=== PATIENT | male | born 1990 | race Caucasian/White ===

== ENCOUNTER 2020-07-17 14:27 | Emergency (ER) | payer MEDICAID ==
[~2020-07-17] VITALS: Ht 182.9 cm; Wt 86.4 kg
[2020-07-17] MEDS ORDERED: BUPR1FIL3 PO (15:43)
--- NOTE | 2020-07-17 16:02 | NUR ---
PT STATES HE IS HAVING A PANIC ATTACK AND FEELING SUICIDAL. PT'S PLAN WOULD BE TO SHOOT HIMSELF WITH A GUN. DOESNT OWN A GUN BUT KNOWS WHERE TO GET ONE. PT DOES NOT WANT TO HURT OTHERS. PT LIEVES WITH HIS STEPFATHER WHO IS SUPPORTIVE. PT GOES TO [facility] FOR HIS SUBOXONE TREATMENTS. PT WALKED HERE TODAY.
[2020-07-17 16:30] LABS: BASOPHILS # (AUTO) 0.1 X10'3 (0-0.2); BASOPHILS % (AUTO) 1.5 % (0-1); EOSINOPHILS # (AUTO) 0.1 X10'3 (0-0.9); EOSINOPHILS % (AUTO) 0.9 % (0-6); HEMATOCRIT 42.7 % (42.0-52.0); HEMOGLOBIN 14.8 g/dl (14.0-17.9); LYMPHOCYTES # (AUTO) 1.1 X10'3 (1.1-4.8); LYMPHOCYTES % (AUTO) 12.5 % (21-51); MEAN CORPUSCULAR HEMOGLOBIN 31.6 PG (27.0-31.0); MEAN CORPUSCULAR HGB CONC 34.6 g/dL (33.0-36.5); MEAN CORPUSCULAR VOLUME 91.4 FL (78-98); MEAN PLATELET VOLUME 8.6 FL (7.4-10.4); MONOCYTES # (AUTO) 0.7 X10'3 (0-0.9); MONOCYTES % (AUTO) 8.2 % (2-12); NEUTROPHILS # (AUTO) 6.5 X10'3 (1.8-7.7); NEUTROPHILS % (AUTO) 76.9 % (42-75); PLATELET COUNT 202 X10'3 (140-440); RED BLOOD COUNT 4.68 X10'6 (4.70-6.10); RED CELL DISTRIBUTION WIDTH 12.7 % (11.5-14.5); WHITE BLOOD COUNT 8.5 X10'3 (4.5-11.0)
[2020-07-17 16:36] LABS: ALANINE AMINOTRANSFERASE 221 U/L (12-78); ALBUMIN 4.3 G/DL (3.4-5.0); ALBUMIN/GLOBULIN RATIO 1.3 (1.1-1.5); ALKALINE PHOSPHATASE 82 IU/L (46-116); ANION GAP 11 (8-16); ASPARTATE AMINO TRANSFERASE 57 U/L (10-37); BILIRUBIN,TOTAL 0.8 MG/DL (0.1-1.0); BLOOD UREA NITROGEN 27 MG/DL (7-18); BUN/CREATININE RATIO 23.3 (5.4-32.0); CHLORIDE 101 MMOL/L (99-107); CREATININE 1.16 MG/DL (0.60-1.10); ETHANOL < 0.010 GM/DL (0.0-0.010); GLUCOSE 106 MG/DL (70-104); POTASSIUM 4.2 MMOL/L (3.5-5.1); SODIUM 137 MMOL/L (135-145); TOTAL CARBON DIOXIDE 25.3 MMOL/L (24-32); TOTAL PROTEIN 7.7 G/DL (6.4-8.2); eGFR 73 ML/MIN
--- NOTE | 2020-07-17 16:42 | NUR ---
PT GIVEN URINE CUP AND AMB TO BATHROOM TO COLLECT SPECIMEN.
[2020-07-17 17:31] LABS: URINE AMPHETAMINE SCREEN NEGATIVE (Neg); URINE BARBITUATE SCREEN NEGATIVE (Neg); URINE BENZODIAZEPINES SCREEN NEGATIVE (Neg); URINE CANNABINOID SCREEN POSITIVE (Neg); URINE COCAINE SCREEN NEGATIVE (Neg); URINE METHADONE SCREEN NEGATIVE (Neg); URINE OPIATE SCREEN NEGATIVE (Neg); URINE PHENCYCLIDINE SCREEN NEGATIVE (Neg)
--- NOTE | 2020-07-17 18:44 | NUR ---
PACKET SENT AT [id number]
--- NOTE | 2020-07-17 19:00 | NUR ---
PT RESTING IN BED, RESTING QUIETLY, NO S/S OF DISTRESS.
[2020-07-17] MEDS: buprenorphine/naloxone 8MG-2MG SUBlingual film SL SCH ×2 (19:46→19:47)
--- NOTE | 2020-07-17 20:00 | NUR ---
PT RESTING IN BED, RESTING QUIETLY, NO S/S OF DISTRESS.
[2020-07-17] MEDS ORDERED: nicotine 14mg patch - 24hr TD ONE (20:55)
--- NOTE | 2020-07-17 21:09 | NUR ---
PT REQUESTED NICOTINE PATCH.
--- NOTE | 2020-07-17 22:23 | NUR ---
PT RESTING IN BED, RESTING QUIETLY, NO S/S OF DISTRESS.
--- NOTE | 2020-07-17 23:46 | NUR ---
PT RESTING IN BED, RESTING QUIETLY, NO S/S OF DISTRESS.
--- NOTE | 2020-07-18 01:48 | NUR ---
PT RESTING IN BED, RESTING QUIETLY, NO S/S OF DISTRESS.
--- NOTE | 2020-07-18 02:56 | NUR ---
PT RESTING IN BED, RESTING QUIETLY, NO S/S OF DISTRESS.
--- NOTE | 2020-07-18 04:37 | NUR ---
PT RESTING IN BED, RESTING QUIETLY, NO S/S OF DISTRESS.
--- NOTE | 2020-07-18 06:30 | NUR ---
PT MOVED FROM ROOM 13 IN ED TO THE OVERFLOW HALLWAY. PT REMAINS CALM AND COOPERATIVE AT THIS TIME. WILL CONT TO MONITOR.
--- NOTE | 2020-07-18 07:45 | NUR ---
PT CURRENTLY RESTING; HE DOES NOT APPEAR TO BE IN ANY DISTRESS OR DISCOMFORT. PT IS STATING THAT HE IS NOT HAVING THE ANXIETY HE ORIGINALLY FELT EARLIER AND HAS NO INTENT AT THIS TIME OF ANY SI. WILL CONT TO MONITOR.
--- NOTE | 2020-07-18 09:02 | NUR ---
PT RESTING COMFORTABLY, IS NOT IN ANY DISTRESS OR DISCOMFORT. WILL CONT TO MONITOR.
--- NOTE | 2020-07-18 09:58 | NUR ---
PT RESTING IN BED, NO SIGNS OF DISTRESS OR DISCOMFORT NOTED. WILL MONITOR.
--- NOTE | 2020-07-18 10:48 | NUR ---
[facility] BEDSIDE EVALUATING PT
--- NOTE | 2020-07-18 11:36 | NUR ---
PAT WITH [facility] EVAL PT AND DETERMINED HE IS SAFE FOR D/C. PAT TO DISCUSS EVAL AND D/C PLANS WITH DR. DANG. WILL MONITOR.
[2020-07-18 12:30] VITALS: BP 118/72
== END 2020-07-18 12:35 | disposition home or self-care (01) ==
LOC: ER 14:27
DX: F41.9 Anxiety disorder, unspecified (principal); F31.9 Bipolar disorder, unspecified; F17.200 Nicotine dependence, unspecified, uncomplicated; F12.90 Cannabis use, unspecified, uncomplicated; Z88.2 Allergy status to sulfonamides; Z79.899 Other long term (current) drug therapy
CPT/HCPCS: 36415; 80053; 80305; 80320; 85025; 99284

== ENCOUNTER 2020-09-09 11:41 | Emergency (ER) | payer MEDICAID ==
[~2020-09-09] VITALS: Ht 182.9 cm; Wt 84.1 kg
[~2020-09-09 11:41] MED LIST: BUPR1FIL3 PO
[2020-09-09 12:05] VITALS: BP 155/83
[2020-09-09] MEDS ORDERED: risperiDONE 2mg tablet PO ONE (12:25)
[2020-09-09 12:36] LABS: CLARITY,URINE CLEAR (Clear); COLOR,URINE STRAW (Yellow); GLUCOSE, URINE NEGATIVE (Neg); KETONES,URINE NEGATIVE (Neg); LEUKOCYTE ESTERASE ,URINE TRACE (Neg); NITRITES, URINE NEGATIVE (Neg); OCCULT BLOOD,URINE NEGATIVE (Neg); PROTEIN,URINE NEGATIVE (Neg); UROBILINOGEN,URINE 0.2 E.U/dL (0.2-1.0)
[2020-09-09 12:39] LABS: UA COLLECTION TYPE CLN CATCH MIDSTREAM
[2020-09-09 12:42] LABS: SQUAMOUS EPITHELIAL CELL,UR FEW /LPF (FEW)
[2020-09-09 12:43] LABS: BACTERIA,URINE FEW /HPF (Neg); RBC,URINE NONE SEEN /HPF (0-2); WBC,URINE 0-4 /HPF (0-4)
[2020-09-09 12:47] LABS: URINE AMPHETAMINE SCREEN NEGATIVE (Neg); URINE BARBITUATE SCREEN NEGATIVE (Neg); URINE BENZODIAZEPINES SCREEN NEGATIVE (Neg); URINE CANNABINOID SCREEN POSITIVE (Neg); URINE COCAINE SCREEN NEGATIVE (Neg); URINE METHADONE SCREEN NEGATIVE (Neg); URINE OPIATE SCREEN NEGATIVE (Neg); URINE PHENCYCLIDINE SCREEN NEGATIVE (Neg)
--- NOTE | 2020-09-09 12:47 | NUR ---
Patient to CT.
[2020-09-09 12:55] LABS: BASOPHILS % (AUTO) 0.4 % (0-1); EOSINOPHILS % (AUTO) 0.7 % (0-6); HEMATOCRIT 42.1 % (42.0-52.0); HEMOGLOBIN 14.3 g/dl (14.0-17.9); LYMPHOCYTES # (AUTO) 0.8 X10'3 (1.1-4.8); LYMPHOCYTES % (AUTO) 16.8 % (21-51); MEAN CORPUSCULAR HEMOGLOBIN 30.9 PG (27.0-31.0); MEAN CORPUSCULAR HGB CONC 33.9 g/dL (33.0-36.5); MEAN PLATELET VOLUME 7.6 FL (7.4-10.4); MONOCYTES # (AUTO) 0.3 X10'3 (0-0.9); MONOCYTES % (AUTO) 6.2 % (2-12); NEUTROPHILS # (AUTO) 3.7 X10'3 (1.8-7.7); NEUTROPHILS % (AUTO) 75.9 % (42-75); PLATELET COUNT 204 X10'3 (140-440); RED BLOOD COUNT 4.62 X10'6 (4.70-6.10); RED CELL DISTRIBUTION WIDTH 12.5 % (11.5-14.5); WHITE BLOOD COUNT 4.9 X10'3 (4.5-11.0)
[2020-09-09 13:18] LABS: ALANINE AMINOTRANSFERASE 534 U/L (12-78); ALBUMIN/GLOBULIN RATIO 1.2 (1.1-1.5); ALKALINE PHOSPHATASE 60 IU/L (46-116); ANION GAP 9 (8-16); ASPARTATE AMINO TRANSFERASE 315 U/L (10-37); BILIRUBIN,TOTAL 0.5 MG/DL (0.1-1.0); BLOOD UREA NITROGEN 16 MG/DL (7-18); CALCIUM 9.1 MG/DL (8.5-10.1); CHLORIDE 103 MMOL/L (99-107); CREATININE 0.94 MG/DL (0.60-1.10); GLUCOSE 98 MG/DL (70-104); POTASSIUM 4.1 MMOL/L (3.5-5.1); SODIUM 139 MMOL/L (135-145); TOTAL CARBON DIOXIDE 26.7 MMOL/L (24-32); TOTAL PROTEIN 7.3 G/DL (6.4-8.2); eGFR > 90 ML/MIN
[2020-09-09 13:24] LABS: ETHANOL < 0.010 GM/DL (0.0-0.010)
--- NOTE | 2020-09-09 13:34 | NUR ---
PACKET FAXED [facility]
--- NOTE | 2020-09-09 13:50 | NUR ---
Patient awake and alert and appears a little anxious. Patient c/o Bipolar d/o but for a month now patient has been hearing voices. Patient describes Command Hallucinations telling him to kill himself. Patient states he is not feeling suicidal now. Patient would like the voices to stop. Continue to monitor.
[2020-09-09] MEDS ORDERED: OLAN20TA19 PO (13:51)
[2020-09-09] MEDS ORDERED: NICO-687 TD (13:51)
[2020-09-09] MEDS ORDERED: nicotine 21mg patch - 24 hr TD SCH (14:30)
--- NOTE | 2020-09-09 14:56 | NUR ---
[facility] [employer], AT THE BEDSIDE SPEAKING WITH PATIENT.
[2020-09-09] MEDS ORDERED: LORazepam 1 MG tablet PO ONE (15:50)
--- NOTE | 2020-09-09 15:55 | NUR ---
Jaime BEACH, evaluating patient. Patient appears anxious. Continue to monitor.
--- NOTE | 2020-09-09 16:00 | NUR ---
RN gave patient 2 mg Ativan. Continue to monitor.
--- NOTE | 2020-09-09 17:45 | NUR ---
Patient awaiting step-dad to pick him up. Patient is feeling better due to the Ativan. Continue to monitor.
[2020-09-09] MEDS ORDERED: buprenorphine/naloxone 8MG-2MG SUBlingual film SL SCH (20:00)
[2020-09-09] MEDS ORDERED: olanzapine 10mg tablet PO SCH (21:00)
== END 2020-09-09 18:24 ==
LOC: ER 11:41
DX: R45.851 Suicidal ideations (principal); F22 Delusional disorders; F20.9 Schizophrenia, unspecified; F31.9 Bipolar disorder, unspecified; F12.90 Cannabis use, unspecified, uncomplicated; F41.9 Anxiety disorder, unspecified; Z88.2 Allergy status to sulfonamides; Z79.899 Other long term (current) drug therapy
CPT/HCPCS: 36415; 70450; 80053; 80305; 80320; 81001; 84443; 85025; 99285

== ENCOUNTER 2020-09-11 16:45 | Emergency (ER) | payer MEDICAID ==
[~2020-09-11] VITALS: Ht 182.9 cm; Wt 84.1 kg
[~2020-09-11 16:45] MED LIST changes: +NICO-687 TD; +OLAN20TA19 PO
--- NOTE | 2020-09-11 17:22 | NUR ---
NICOTINE 21MG PATCH RIGHT HIP, PLACED THIS AM
[2020-09-11 17:39] VITALS: BP 147/90
== END 2020-09-11 17:37 | disposition home or self-care (01) ==
LOC: ER 16:45
DX: F41.0 Panic disorder [episodic paroxysmal anxiety] (principal); R44.0 Auditory hallucinations; F41.9 Anxiety disorder, unspecified; F31.9 Bipolar disorder, unspecified; F12.90 Cannabis use, unspecified, uncomplicated; Z88.2 Allergy status to sulfonamides; Z79.899 Other long term (current) drug therapy
CPT/HCPCS: 99282

== ENCOUNTER 2024-02-01 13:03 | Outpatient (CLI) | payer MEDICAID | END 2024-02-01 23:59 | disposition home or self-care (01) | LOC: CARD DIAG 13:03 | PROVIDERS: ATTEND Student in an Organized Health Care Education/Training Program | DX: I08.8 Other rheumatic multiple valve diseases (principal); F15.90 Other stimulant use, unspecified, uncomplicated | CPT/HCPCS: 93306 ==